=== PATIENT | male | born 1955 | race African-American/Black ===

== ENCOUNTER 2018-03-29 08:33 | Emergency (ER) | payer OTHER ==
[2018-03-29] MEDS ORDERED: ADENOSINE 6MG/2ML INJECTION (J0153) As Ordered (08:48)
[2018-03-29] MEDS: ADENOSINE 6MG/2ML INJECTION (J0153) IV ×2 (08:53→08:55)
[2018-03-29] MEDS ORDERED: ONDANSETRON 4MG/2ML VIAL (J2405) As Ordered (09:00)
[2018-03-29] MEDS ORDERED: MORPHINE 2 MG/ML 1ML SYRINGE (J2270) As Ordered (09:00)
[2018-03-29] MEDS ORDERED: MORPHINE 2 MG/ML 1ML SYRINGE (J2270) IV ×2 (09:00→09:30)
[2018-03-29] MEDS: ONDANSETRON 4MG/2ML VIAL (J2405) IV ×2 (09:02→10:58)
[2018-03-29] MEDS: METOPROLOL 5 MG/5 ML VIAL IV ×5 (09:05→09:18)
[2018-03-29 09:16] LABS: BASO % 0.4 % (0.0-1.0); EOS # 0.6 10^3/uL (0.0-0.50); EOS % 12.5 % (0.0-3.0); HEMOGLOBIN 14.6 g/dl (13.5-17.5); IMMATURE GRANULOCYTE % 0.2 % (0-3.0); LYMPH # 1.1 10^3/uL (1.5-4.5); LYMPH % 21.9 % (24.0-44.0); MEAN CORPUSCULAR HEMOGLOBIN 29.2 pg (27.0-33.0); MEAN CORPUSCULAR HGB CONC 32.4 g/dl (32.0-36.5); MONO # 0.6 10^3/uL (0.0-0.8); MONO % 11.4 % (0.0-5.0); NEUTROPHILS # 2.7 10^3/uL (1.8-7.7); NEUTROPHILS % 53.6 % (36.0-66.0); PLATELET COUNT, AUTOMATED 178 10^3/uL (150-450); RED CELL DISTRIBUTION WIDTH 14.3 % (11.5-14.5); WHITE BLOOD COUNT 5.1 10^3/uL (4.0-10.0)
[2018-03-29] MEDS ORDERED: ISOVUE-370 76% 100ML VIAL (Q9967) As Ordered ×2 (09:19→10:08)
[2018-03-29] MEDS: METOPROLOL TART 25 MG TABLET PO (09:21)
[2018-03-29 09:52] LABS: ALBUMIN/GLOBULIN RATIO 0.83 (1.00-1.93); ALKALINE PHOSPHATASE 125 U/L (45-117); ALT/SGPT 36 U/L (12-78); ANION GAP 12 MEQ/L (8-16); AST/SGOT 41 U/L (7-37); BILIRUBIN,DIRECT 0.2 MG/DL (0.0-0.2); BILIRUBIN,TOTAL 1.1 MG/DL (0.2-1.0); BLOOD UREA NITROGEN 11 MG/DL (7-18); CALCIUM LEVEL 8.9 MG/DL (8.8-10.2); CARBON DIOXIDE LEVEL 22 MEQ/L (21-32); CHLORIDE LEVEL 104 MEQ/L (98-107); CPK CREATINE PHOSPHOKINASE 147 U/L (39-308); CREATININE FOR GFR 1.16 MG/DL (0.70-1.30); FREE T4 1.19 NG/DL (0.76-1.46); GLOMERULAR FILTRATION RATE > 60.0 (>49); GLUCOSE, FASTING 104 MG/DL (70-100); LIPASE 140 U/L (73-393); MB/CK RELATIVE INDEX 0.88 (< OR =4); NT-PRO BNP 9428 PG/ML (<125); POTASSIUM SERUM 4.2 MEQ/L (3.5-5.1); SODIUM LEVEL 138 MEQ/L (136-145); TOTAL PROTEIN 8.8 GM/DL (6.4-8.2); TROPONIN I < 0.02 NG/ML (< 0.10)
[2018-03-29 10:12] LABS: INR 1.04; PROTHROMBIN TIME 13.7 SECONDS (12.1-14.4)
[2018-03-29] MEDS: niCARdipine IV 40 MG in APPROPRIATE DILUENT 1 EA IV (10:43)
[2018-03-29] MEDS: LABETALOL HCL 100 MG/20 ML VIAL IV (10:50)
[2018-03-29] MEDS: LORazepam 2 MG/ML VIAL (J2060) IV (10:58)
== END 2018-03-29 11:27 | disposition short-term general hospital (02) ==
LOC: M ED 08:33
DX: I71.00 Dissection of unspecified site of aorta (principal); I48.91 Unspecified atrial fibrillation; I10 Essential (primary) hypertension; F17.200 Nicotine dependence, unspecified, uncomplicated; Z88.0 Allergy status to penicillin; Z79.899 Other long term (current) drug therapy
CPT/HCPCS: J2405